=== PATIENT | female | born 1990 | race Caucasian/White ===

== ENCOUNTER 2017-06-18 14:29 | Emergency (ER) | payer SELFPAY ==
[2017-06-18] MEDS ORDERED: KETOROLAC TROMETHAMINE INJ/PF 30 MG/1 ML SDV IV ONE (14:48)
[2017-06-18] MEDS ORDERED: NORMAL SALINE 1000 ML 1,000 ML IV ONE (14:48)
[2017-06-18] MEDS ORDERED: LIDOCAINE 2% VISCOUS SOLN 20 ML UDCUP PO ONE (14:49)
--- NOTE | 2017-06-18 14:49 | ER Document Report ---
HPI - HPI Patient complains to provider of: sore throat Onset: Other - 2 days Onset/Duration: Persistent Quality of pain: Achy Pain Level: 5 Context: Patient presents complaining of sore throat for the past 2 days. Patient states she has not been drinking as much because of the pain. Patient denies any fever. Associated Symptoms: Sore throat. denies: Earache, Fever, Headache Exacerbated by: Denies Relieved by: Denies Similar symptoms previously: Yes Recently seen / treated by doctor: No - ROS ROS below otherwise negative: Yes Systems Reviewed and Negative: Yes All other systems reviewed and negative - CONSTITUTIONAL Constitutional: DENIES: Fever - EENT EENT: REPORTS: Sore Throat - NEURO Neurology: DENIES: Headache - RESPIRATORY Respiratory: DENIES: Coughing - GASTROINTESTINAL Gastrointestinal: DENIES: Nausea, Patient vomiting - DERM Skin Color: Normal, [place] Skin Problems: None Past Medical History - General Information source: Patient - Social History Smoking Status: Current Every Day Smoker Frequency of alcohol use: None Drug Abuse: None Occupation: Property management Family History: Reviewed & Not Pertinent Patient has suicidal ideation: No Patient has homicidal ideation: No Endocrine Medical History: Reports: Other - Al's Renal/ Medical History: Reports: Hx Ovarian Cysts - PCOS. Denies: Hx Peritoneal Dialysis Past Surgical History: Reports: Hx Gynecologic Surgery - LEEP procedures, Hx Thyroid Surgery, Hx Tonsillectomy Vertical Provider Document - CONSTITUTIONAL Agree With Documented VS: Yes Exam Limitations: No Limitations General Appearance: WD/WN, No Apparent Distress - INFECTION CONTROL TRAVEL OUTSIDE OF THE [place] IN LAST 30 DAYS: No - HEENT HEENT: Atraumatic, Normocephalic, Pharyngeal Tenderness, Pharyngeal Erythema. negative: Pharyngeal Exudate, Tympanic Membrane Red, Tympanic Membrane Bulging - NECK Neck: Lymphadenopathy-Left, Lymphadenopathy-Right - RESPIRATORY Respiratory: Breath Sounds Normal, No Respiratory Distress O2 Sat by Pulse Oximetry: 98 - CARDIOVASCULAR Cardiovascular: Regular Rhythm, No Murmur, Tachycardia - BACK Back: Normal Inspection - MUSCULOSKELETAL/EXTREMETIES Musculoskeletal/Extremeties: MAEW - NEURO Level of Consciousness: Awake, Alert, Appropriate Motor/Sensory: No Motor Deficit - DERM Integumentary: Warm, Dry, No Rash Course - Re-evaluation Re-evalutation: 06/18/17 16:07 Patient's tachycardia has resolved, heart rate in the 90s, patient complains of continued sore throat symptoms. Patient encouraged to increase oral fluids and stay well-hydrated. Patient advised that throat cultures pending. Discussed worsening signs or symptoms that patient should return immediately for. Patient verbalized understanding and agrees with plan of care. - Vital Signs Vital signs: Temp Pulse Resp BP Pulse Ox 99.4 F 138 H 14 127/84 H 98 06/18/17 14:36 06/18/17 14:36 06/18/17 14:36 06/18/17 14:36 06/18/17 14:36 - Laboratory Laboratory results interpreted by me: 06/18/17 16:08 Labs- Entire Visit 06/18/17 14:37 Group A Strep Rapid NEGATIVE Discharge - Discharge Clinical Impression: Sore throat (viral), Dehydration, mild Condition: Stable Disposition: HOME, SELF-CARE Instructions: Sore Throat ([facility]), Dehydration ([facility]), Intravenous (IV) Fluids ( [facility]) Additional Instructions: Return immediately for any new or worsening symptoms Followup with your primary care provider, call tomorrow to make a followup appointment Increase oral fluids, stay well-hydrated Throat culture is pending, we will call if you need any different treatment Prescriptions: Naproxen [Naprosyn 250 Nmg Tablet] 1 tab PO BID #14 tablet Forms: Return to Work Referrals: [facility] [Provider Group] - Follow up as needed
[2017-06-18 16:40] VITALS: BP 126/78
== END 2017-06-18 16:40 | disposition home or self-care (01) ==
LOC: ER 14:29
DX: J02.8 Acute pharyngitis due to other specified organisms (principal); B97.89 Other viral agents as the cause of diseases classified elsewhere; E86.0 Dehydration; R00.0 Tachycardia, unspecified; F17.200 Nicotine dependence, unspecified, uncomplicated
CPT/HCPCS: 99283; 96374; 87070; 87880; J1885; J7030

== ENCOUNTER 2017-06-20 21:24 | Emergency (ER) | payer SELFPAY ==
[2017-06-20] MEDS ORDERED: ACETAMINOPHEN SOLN 325 MG/10.15 ML UDCUP PO ONE (22:44)
[2017-06-21] MEDS ORDERED: DEXAMETHASONE 4 MG TABLET PO ONE (00:43)
--- NOTE | 2017-06-21 00:47 | ER Document Report ---
ED General - General Chief Complaint: Sore Throat Stated Complaint: SORE THROAT,FEVER Time Seen by Provider: 06/21/17 00:43 Notes: Patient is a 26-year-old female without past medical history who presents with 3 days of ongoing sore throat, odynophagia, fever, and generalized malaise. She was seen in the emergency department 2 days ago for the same presentation and had negative strep test at that time. She has been trying Tylenol and ibuprofen at home with minimal improvement of her symptoms. She has not seen a primary care doctor regarding today's concerns. Denies any headache, neck pain or altered mental status. No history of similar symptoms in the past TRAVEL OUTSIDE OF THE [place] IN LAST 30 DAYS: No - Related Data Allergies/Adverse Reactions: No Known Allergies Allergy (Unverified 06/18/17 14:49) Past Medical History - General Information source: Patient - Social History Smoking Status: Current Every Day Smoker Chew tobacco use (# tins/day): No Frequency of alcohol use: None Drug Abuse: None Lives with: Spouse/Significant other Family History: Reviewed & Not Pertinent Pulmonary Medical History: Reports: Hx Tuberculosis Renal/ Medical History: Reports: Hx Ovarian Cysts - PCOS. Denies: Hx Peritoneal Dialysis Past Surgical History: Reports: Hx Gynecologic Surgery - LEEP procedures, Hx Thyroid Surgery, Hx Tonsillectomy - Immunizations Hx Diphtheria, Pertussis, Tetanus Vaccination: No Review of Systems - Review of Systems Notes: Constitutional: Positive for fever. HENT: Positive for sore throat. Eyes: Negative for visual changes. Cardiovascular: Negative for chest pain. Respiratory: Negative for shortness of breath. Gastrointestinal: Negative for abdominal pain, vomiting or diarrhea. Genitourinary: Negative for dysuria. Musculoskeletal: Negative for back pain. Skin: Negative for rash. Neurological: Negative for headaches, weakness or numbness. 10 point ROS negative except as marked above and in HPI. Physical Exam - Vital signs Vitals: Temp Pulse Resp BP Pulse Ox 102.1 F H 136 H 20 132/81 H 97 06/20/17 22:37 06/20/17 22:37 06/20/17 22:37 06/20/17 22:37 06/20/17 22:37 Interpretation: Tachycardic Notes: PHYSICAL EXAMINATION: GENERAL: Well-appearing, well-nourished and in no acute distress. HEAD: Atraumatic, normocephalic. EYES: Pupils equal round and reactive to light, extraocular movements intact, sclera anicteric, conjunctiva are normal. ENT: nares patent, white exudates in the posterior pharynx, tonsils absent, moderately dry mucous membranes NECK: Normal range of motion, supple without lymphadenopathy LUNGS: Breath sounds clear to auscultation bilaterally and equal. No wheezes rales or rhonchi. HEART: Regular tachycardia without murmurs ABDOMEN: Soft, nontender, normoactive bowel sounds. No guarding, no rebound. No masses appreciated. EXTREMITIES: Normal range of motion, no pitting or edema. No cyanosis. NEUROLOGICAL: No focal neurological deficits. Moves all extremities spontaneously and on command. PSYCH: Normal mood, normal affect. SKIN: Warm, Dry, normal turgor, no rashes or lesions noted. Course - Re-evaluation Re-evalutation: 06/21/17 00:44 Presentation of several days of sore throat in an otherwise well-appearing patient. Rapid strep is negative. History and exam are not consistent with a retropharyngeal abscess or peritonsillar abscess. Airway is patent. No difficulty handling oral secretions. Vitals within normal limits. Patient has been treated with a dose of oral decadron. At this time will discharge with return precautions and follow-up recommendations. Verbal discharge instructions given a the bedside and opportunity for questions given. Medication warnings reviewed. Patient is in agreement with this plan and has verbalized understanding of return precautions and the need for primary care follow-up. - Vital Signs Vital signs: Temp Pulse Resp BP Pulse Ox 99.5 F 91 20 82/49 L 96 06/21/17 02:37 06/21/17 02:37 06/21/17 02:37 06/21/17 02:37 06/21/17 02:37 Discharge - Discharge Clinical Impression: Sore throat (viral), Dehydration, mild Condition: Good Disposition: HOME, SELF-CARE Additional Instructions: Your strep test is normal. Your symptoms are likely due to a virus and should resolve in the next 7-10 days. Take ibuprofen or Tylenol as needed. Return if you develop difficulty swallowing, breathing, pass out, or have any other symptoms that are worrisome to you. Forms: Return to Work
[2017-06-21] MEDS ORDERED: NORMAL SALINE 1000 ML 1,000 ML IV ONE (01:03)
[2017-06-21] MEDS ORDERED: KETOROLAC TROMETHAMINE INJ/PF 30 MG/1 ML SDV IV ONE (01:03)
[2017-06-21 03:31] VITALS: BP 106/48
== END 2017-06-21 03:44 | disposition home or self-care (01) ==
LOC: ER 21:24
DX: J02.8 Acute pharyngitis due to other specified organisms (principal); B97.89 Other viral agents as the cause of diseases classified elsewhere; E86.0 Dehydration; R50.9 Fever, unspecified; R13.10 Dysphagia, unspecified; R53.81 Other malaise; F17.200 Nicotine dependence, unspecified, uncomplicated; Z90.89 Acquired absence of other organs
CPT/HCPCS: 99283; 96361; 96374; 87070; 87880; J1885; J7030; J3490

== ENCOUNTER 2018-05-29 10:02 | Emergency (ER) | payer MEDICAID ==
--- NOTE | 2018-05-29 10:20 | ER Document Report ---
ED Medical Screen (RME) - General Chief Complaint: OB Problem (<20wks) Stated Complaint: ABDOMINAL PAIN Time Seen by Provider: 05/29/18 10:10 Notes: A0 ~13 weeks , LMP ~34 presents for chief complaint of intermittent abdominal sharp cramping that is diffuse that has been going on since yesterday. She states she has been constipated for the last several days , but cannot tell me exact time, ~one week. She has been having intermittent vomiting since the beginning of her . She states that she has had one formal ultrasound showing valid intrauterine at outside clinic. No known medical problems or drug allergies. She denies dysuria, vaginal discharge, vaginal bleeding, or loss of fluids. I have greeted and performed a rapid initial assessment of this patient. A comprehensive ED assessment and evaluation of the patient, analysis of test results and completion of the medical decision making process will be conducted by additional ED providers. PHYSICAL EXAMINATION: GENERAL: Well-appearing, well-nourished and in no acute distress. Mildly dry mucus membranes HEAD: Atraumatic, normocephalic. EYES: Pupils equal round extraocular movements intact, conjunctiva are normal. CV: Tachycardia, murmors LUNGS: No respiratory distress Musculoskeletal: Normal range of motion NEUROLOGICAL: Normal speech, normal gait. PSYCH: Normal mood, normal affect. TRAVEL OUTSIDE OF THE [place] IN LAST 30 DAYS: No - Related Data Allergies/Adverse Reactions: No Known Allergies Allergy (Verified 05/29/18 10:15) Past Medical History - Social History Chew tobacco use (# tins/day): No Frequency of alcohol use: None Drug Abuse: None Pulmonary Medical History: Reports: Hx Tuberculosis Renal/ Medical History: Reports: Hx Ovarian Cysts - PCOS. Denies: Hx Peritoneal Dialysis Past Surgical History: Reports: Hx Gynecologic Surgery - LEEP procedures, Hx Thyroid Surgery, Hx Tonsillectomy - Immunizations Hx Diphtheria, Pertussis, Tetanus Vaccination: No Physical Exam - Vital signs Vitals: Temp Pulse Resp BP Pulse Ox 97.9 F 127 H 18 139/79 H 97 05/29/18 10:07 05/29/18 10:07 05/29/18 10:07 05/29/18 10:07 05/29/18 10:07 Course - Vital Signs Vital signs: Temp Pulse Resp BP Pulse Ox 97.9 F 127 H 18 139/79 H 97 05/29/18 10:07 05/29/18 10:07 05/29/18 10:07 05/29/18 10:07 05/29/18 10:07
[2018-05-29] MEDS ORDERED: RINGERS SOLUTION,LACTATED 1,000 ML IV PRN (10:22)
[2018-05-29] MEDS ORDERED: METOCLOPRAMIDE HCL INJ/PF 10 MG/2 ML SDV IV ONE (10:22)
--- NOTE | 2018-05-29 10:32 | ER Document Report ---
ED GI/ - General Chief Complaint: OB Problem (<20wks) Stated Complaint: ABDOMINAL PAIN Time Seen by Provider: 05/29/18 10:10 Mode of Arrival: Ambulatory Information source: Patient Notes: The patient is currently 13 weeks . Patient reports intermittent cramping that started yesterday with nausea and vomiting. Patient states she is vomited twice today. Patient denies any diarrhea, urine symptoms, vaginal bleeding or discharge. Patient denies any concerns about any sexually transmitted infection. Patient is followed by [facility]. TRAVEL OUTSIDE OF THE [place] IN LAST 30 DAYS: No - HPI Patient complains to provider of: Pelvic pain, , Vomiting Onset: Yesterday Timing/Duration: Gradual Quality of pain: Cramping Severity in ED: Moderate Pain Level: Denies Location: Pelvis Vaginal bleeding (Compared to normal period): None Menstrual period history: Associated symptoms: Nausea, Vomiting. 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 Denies: Hx Peritoneal Dialysis Past Surgical History: Reports: Hx Gynecologic Surgery - LEEP procedures, Hx Thyroid Surgery, Hx Tonsillectomy - Immunizations Hx Diphtheria, Pertussis, Tetanus Vaccination: No Review of Systems - Review of Systems Constitutional: No symptoms reported. denies: Fever, Recent illness EENT: No symptoms reported Cardiovascular: No symptoms reported. denies: Chest pain Respiratory: No symptoms reported. denies: Cough, Short of breath Gastrointestinal: Abdominal pain, Nausea, Vomiting. denies: Diarrhea Genitourinary: No symptoms reported. denies: Dysuria, Flank pain Female Genitourinary: No symptoms reported, . denies: Vaginal discharge , Vaginal bleeding Musculoskeletal: No symptoms reported. denies: Back pain Skin: No symptoms reported Hematologic/Lymphatic: No symptoms reported Neurological/Psychological: No symptoms reported Physical Exam - Vital signs Vitals: Temp Pulse Resp BP Pulse Ox 97.9 F 127 H 18 139/79 H 97 05/29/18 10:07 05/29/18 10:07 05/29/18 10:07 05/29/18 10:07 05/29/18 10:07 - General General appearance: Appears well, Alert In distress: None - HEENT Head: Normocephalic, Atraumatic Eyes: Normal Conjunctiva: Normal Nasal: Normal Mouth/Lips: Normal Pharynx: Normal Neck: Normal, Supple. No: Lymphadenopathy - Respiratory Respiratory status: No respiratory distress Chest status: Nontender Breath sounds: Normal. No: Rales, Rhonchi, Stridor, Wheezing Chest palpation: Normal - Cardiovascular Rhythm: Tachycardia Heart sounds: S1 appreciated, S2 appreciated Murmur: No - Abdominal Inspection: Gravid female Distension: No distension Bowel sounds: Normal Tenderness: Nontender Organomegaly: No organomegaly - Back Back: Normal, Nontender. No: CVA tenderness - Extremities General upper extremity: Normal inspection, Normal strength General lower extremity: Normal inspection, Normal strength - Neurological Neuro grossly intact: Yes Cognition: Normal David Coma Scale Eye Opening: Spontaneous David Coma Scale Verbal: Oriented David Coma Scale Motor: Obeys Commands [place] Coma Scale Total: 15 - Psychological Associated symptoms: Normal affect, Normal mood - Skin Skin Temperature: Warm Skin Moisture: Dry Skin Color: Normal Course - Re-evaluation Re-evalutation: 05/29/18 12:42 Patient denies any nausea or vomiting at this time. Patient nontoxic in appearance. Patient does report cramping resolved after having a bowel movement. Patient feels as though constipation is playing a role in her pain symptoms today. Abdomen soft, no guarding. Patient presents with abdominal pain without signs of peritonitis or other life-threatening or serious etiology. Patient appears stable for discharge and has been instructed to return immediately if the symptoms worsen in any way, or in 8-12 hours if not improved for reevaluation. The patient has been instructed to return if the symptoms worsen or change in any way. 05/29/18 12:49 - Vital Signs Vital signs: Temp Pulse Resp BP Pulse Ox 98.4 F 90 16 106/58 L 95 05/29/18 14:10 05/29/18 14:10 05/29/18 12:18 05/29/18 14:10 05/29/18 14:10 - Laboratory Result Diagrams: 05/29/18 10:32 05/29/18 10:32 Laboratory results interpreted by me: 05/29/18 05/29/18 05/29/18 10:32 10:32 10:33 WBC 11.6 H Hct 35.9 L Seg Neutrophils % 81.0 H Absolute Neutrophils 9.4 H Carbon Dioxide 21 L BUN 6 L Creatinine 0.40 L Urine Urobilinogen 2.0 H Labs- Entire Visit 05/29/18 05/29/18 05/29/18 10:32 10:32 10:33 WBC 11.6 H RBC 4.14 Hgb 12.4 Hct 35.9 L MCV 87 MCH 29.8 MCHC 34.4 RDW 13.9 Plt Count 331 Seg Neutrophils % 81.0 H Lymphocytes % 14.4 Monocytes % 3.9 Eosinophils % 0.4 Basophils % 0.3 Absolute Neutrophils 9.4 H Absolute Lymphocytes 1.7 Absolute Monocytes 0.5 Absolute Eosinophils 0.1 Absolute Basophils 0.0 Sodium 141.2 Potassium 4.3 Chloride 106 Carbon Dioxide 21 L Anion Gap 14 BUN 6 L Creatinine 0.40 L Est GFR ( Amer) > 60 Est GFR (Non-Af Amer) > 60 Glucose 83 Calcium 10.0 Total Bilirubin 0.3 Direct Bilirubin 0.3 Neonat Total Bilirubin Not Reportable Neonat Direct Bilirubin Not Reportable Neonat Indirect Bili Not Reportable AST 15 ALT 16 Alkaline Phosphatase 73 Total Protein 6.8 Albumin 3.9 Urine Color YELLOW Urine Appearance SLIGHTLY-CLOUDY Urine pH 7.0 Ur Specific [place] 1.019 Urine Protein NEGATIVE Urine Glucose (UA) NEGATIVE Urine Ketones NEGATIVE Urine Blood NEGATIVE Urine Nitrite NEGATIVE Urine Bilirubin NEGATIVE Urine Urobilinogen 2.0 H Ur Leukocyte Esterase NEGATIVE Urine WBC (Auto) 2 Urine RBC (Auto) 1 Urine Bacteria (Auto) TRACE Squamous Epi Cells Auto 3 Urine Mucus (Auto) OCC Urine Ascorbic Acid NEGATIVE - Diagnostic Test Radiology reviewed: Reports reviewed Discharge - Discharge Clinical Impression: Abdominal cramping affecting Nausea and vomiting Qualifiers: Vomiting type: unspecified Vomiting Intractability: non-intractable Qualified Code(s): R11.2 - Nausea with vomiting, unspecified Constipation Qualifiers: Constipation type: unspecified constipation type Qualified Code(s): K59.00 - Constipation, unspecified Condition: Stable Disposition: HOME, SELF-CARE Instructions: Antinausea Medication ([facility]), Intravenous (IV) Fluids ([facility]), Viral Syndrome ([facility]) Additional Instructions: Return immediately for any new or worsening symptoms Follow-up with your title searcher on Thursday, call for an appointment time. Prescriptions: Promethazine HCl [Phenergan 25 mg Supp.rect] 1 supp WY Q6H PRN #10 supp.rect PRN Reason: Forms: Smoking Cessation Education Referrals: SHANTAL RICHARDSON MD [Primary Care Provider] - 05/31/18
[2018-05-29 11:10] LABS: ABSOLUTE EOSINOPHILS # (AUTO) 0.1 10^3/uL (0.0-0.6); ABSOLUTE LYMPHOCYTES (AUTO) 1.7 10^3/uL (0.5-4.7); ABSOLUTE MONOCYTES (AUTO) 0.5 10^3/uL (0.1-1.4); ABSOLUTE NEUT (AUTO) 9.4 10^3/uL (1.7-8.2); BASOPHILS % (AUTO) 0.3 % (0-2); EOSINOPHILS % (AUTO) 0.4 % (0-6); HEMATOCRIT 35.9 % (36.0-47.0); HEMOGLOBIN 12.4 g/dL (12.0-15.5); LYMPHOCYTES % (AUTO) 14.4 % (13-45); MEAN CORPUSCULAR HEMOGLOBIN 29.8 pg (27.0-33.4); MEAN CORPUSCULAR HGB CONC 34.4 g/dL (32.0-36.0); MEAN CORPUSCULAR VOLUME 87 fl (80-97); MONOCYTES % (AUTO) 3.9 % (3-13); PLATELET COUNT 331 10^3/uL (150-450); RED BLOOD COUNT 4.14 10^6/uL (3.72-5.28); RED CELL DISTRIBUTION WIDTH 13.9 % (11.5-14.0); TOTAL CELLS COUNTED % (AUTO) 100 %; WHITE BLOOD COUNT 11.6 10^3/uL (4.0-10.5)
--- NOTE | 2018-05-29 11:24 | RADIOLOGY REPORT (SQ) ---
EXAM DESCRIPTION: U/S [id number] TRNABD 1GES W/ODOP COMPLETED DATE/TIME: 05/29/2018 11:10 am REASON FOR STUDY: pelvic pain COMPARISON: None. TECHNIQUE: Transabdominal static and realtime grayscale images acquired of the pelvis. Additional se lected spectral and color Doppler images recorded. All images stored on PACs. bHCG: Not available. CLINICAL DATES: 12/08/2018 LIMITATIONS: None. FINDINGS: FETUS: Living intrauterine . ULTRASOUND EGA: 12 weeks 6 days ULTRASOUND GARY: 12/05/2018 CRL: 6.6 cm FHR: 167 beats per minute. SUBCHORIONIC BLEED: No SIZE OF BLEED: Not applicable. UTERUS: No masses. No anomalies. CERVICAL LENGTH: 3.9 cm Closed. RIGHT ADNEXA: Ovary not identified. No adnexal free fluid. No adnexal masses. LEFT ADNEXA: Ovary not identified. No adnexal free fluid. No adnexal masses. FREE FLUID: None. OTHER: No other significant finding. IMPRESSION: LIVING INTRAUTERINE . EGA 12 weeks 6 days Trimester of : First - 0 to 13 weeks. TECHNICAL DOCUMENTATION: JOB ID: [id number] [employer]- All Rights Reserved rev-04/16 Reading location - IP/workstation name: [email or web address]
[2018-05-29 11:43] LABS: ALANINE AMINOTRANSFERASE 16 U/L (9-52); ALBUMIN 3.9 g/dL (3.5-5.0); ALKALINE PHOSPHATASE 73 U/L (38-126); ANION GAP 14 (5-19); ASPARTATE AMINO TRANSFERASE 15 U/L (14-36); BILIRUBIN,DIRECT 0.3 mg/dL (0.0-0.4); BILIRUBIN,TOTAL 0.3 mg/dL (0.2-1.3); BLOOD UREA NITROGEN 6 mg/dL (7-20); CARBON DIOXIDE 21 mmol/L (22-30); CHLORIDE 106 mmol/L (98-107); GLUCOSE 83 mg/dL (75-110); POTASSIUM 4.3 mmol/L (3.6-5.0); SODIUM 141.2 mmol/L (137-145); TOTAL PROTEIN 6.8 g/dL (6.3-8.2)
[2018-05-29] MEDS ORDERED: ACETAMINOPHEN 325 MG TABLET PO ONE (12:03)
[2018-05-29 12:23] LABS: APPEARANCE,URINE SLIGHTLY-CLOUDY; BILIRUBIN,URINE NEGATIVE (NEGATIVE); COLOR,URINE YELLOW; GLUCOSE, URINE NEGATIVE (NEGATIVE); KETONES,URINE NEGATIVE (NEGATIVE); LEUKOCYTE ESTERASE,URINE NEGATIVE (NEGATIVE); NITRITE,URINE NEGATIVE (NEGATIVE); PROTEIN,URINE NEGATIVE (NEGATIVE); URINE SPECIFIC GRAVITY 1.019
[2018-05-29 14:18] VITALS: BP 106/58
== END 2018-05-29 14:18 | disposition home or self-care (01) ==
LOC: ER 10:02
DX: O21.9 Vomiting of pregnancy, unspecified (principal); O99.611 Diseases of the digestive system complicating pregnancy, first trimester; K59.00 Constipation, unspecified; O26.891 Other specified pregnancy related conditions, first trimester; R10.2 Pelvic and perineal pain; O99.331 Smoking (tobacco) complicating pregnancy, first trimester; Z3A.13 13 weeks gestation of pregnancy
CPT/HCPCS: 99284; 96361; 96374; 36415; 85025; 80053; 81001; 76801; J3490; J2765; J7120

== ENCOUNTER → 2018-10-07 | Outpatient (CLI) | payer MEDICAID | LOC: OD 17:01 | PROVIDERS: ATTEND Student in an Organized Health Care Education/Training Program | DX: Z13.1 Encounter for screening for diabetes mellitus (principal) | CPT/HCPCS: 36415; 83036 ==

== ENCOUNTER → 2018-11-10 | Outpatient (CLI) | payer MEDICAID | LOC: LC 10:18 | PROVIDERS: ATTEND Student in an Organized Health Care Education/Training Program | PROC: 4A1HXCZ Monitoring of Products of Conception, Cardiac Rate, External Approach (ICD-10-PCS; principal; 2018-11-10) | DX: Z34.93 Encounter for supervision of normal pregnancy, unspecified, third trimester (principal) | CPT/HCPCS: 59025 ==

== ENCOUNTER 2018-12-01 15:42 | Outpatient (CLI) | payer MEDICAID ==
--- NOTE | 2018-12-01 16:28 | Non Stress Test Report ---
Non Stress Test Datetime Report Generated by CPN: 12/01/2018 16:27 INDICATION Indication for Study: Ordered by Provider Indication for Study (NST) Other: repeat VITAL SIGNS RESP - NST: 18 MONITORING Monitor Explained: Monitor Explained; Test Explained; Patient Verbalized Understanding Time on Monitor: 12/01/2018 15:58 Time off Monitor: 12/01/2018 16:21 NST Duration: 23 NST INTERVENTIONS NST Interventions: PO Hydration; Reposition Patient Physician Notified NST: J Ball CNM BABY A: [id number] BABY A Movement : Present Contraction Frequency : irregular FHR Baseline : 130 Accelerations : 15X15 Decelerations : None Variability : Moderate 6-25bpm NST Review: Meets Criteria for Reactive NST NST Review and Verified By : cheryl camp rnc NST Results: Reactive NST REPORT Report Trigger: Send Report
[2018-12-01 16:35] LABS: ALANINE AMINOTRANSFERASE 15 U/L (9-52); ALBUMIN 3.3 g/dL (3.5-5.0); ALKALINE PHOSPHATASE 336 U/L (38-126); ANION GAP 8 (5-19); ASPARTATE AMINO TRANSFERASE 13 U/L (14-36); BILIRUBIN,DIRECT 0.2 mg/dL (0.0-0.4); BILIRUBIN,TOTAL 0.3 mg/dL (0.2-1.3); BLOOD UREA NITROGEN 8 mg/dL (7-20); CALCIUM 9.5 mg/dL (8.4-10.2); CARBON DIOXIDE 20 mmol/L (22-30); CHLORIDE 108 mmol/L (98-107); GLUCOSE 142 mg/dL (75-110); POTASSIUM 3.9 mmol/L (3.6-5.0); SODIUM 135.8 mmol/L (137-145); TOTAL PROTEIN 6.2 g/dL (6.3-8.2)
== END 2018-12-01 16:25 | disposition home or self-care (01) ==
LOC: LC 15:42
PROVIDERS: ATTEND Obstetrics & Gynecology Gynecology
PROC: 4A1HXCZ Monitoring of Products of Conception, Cardiac Rate, External Approach (ICD-10-PCS; principal; 2018-12-01)
DX: Z34.93 Encounter for supervision of normal pregnancy, unspecified, third trimester (principal)
CPT/HCPCS: 36415; 59025; 80053

== ENCOUNTER 2018-12-05 20:02 | Inpatient (IN) | payer MEDICAID ==
[2018-12-05] MEDS ORDERED: RINGERS SOLUTION,LACTATED 1,000 ML IV PRN (20:18)
[2018-12-05] MEDS ORDERED: RINGERS SOLUTION,LACTATED 300 ML IV ONE (20:18)
[2018-12-05] MEDS ORDERED: DINOPROSTONE 10 MG VAGINAL INSERT.SR PV PRN (20:18)
[2018-12-05 20:46] LABS: ABSOLUTE BASOPHILS # (AUTO) 0.1 10^3/uL (0.0-0.2); ABSOLUTE EOSINOPHILS # (AUTO) 0.1 10^3/uL (0.0-0.6); ABSOLUTE LYMPHOCYTES (AUTO) 2.3 10^3/uL (0.5-4.7); ABSOLUTE MONOCYTES (AUTO) 0.6 10^3/uL (0.1-1.4); ABSOLUTE NEUT (AUTO) 8.8 10^3/uL (1.7-8.2); BASOPHILS % (AUTO) 0.7 % (0-2); EOSINOPHILS % (AUTO) 0.9 % (0-6); HEMATOCRIT 31.3 % (36.0-47.0); HEMOGLOBIN 10.6 g/dL (12.0-15.5); LYMPHOCYTES % (AUTO) 19.6 % (13-45); MEAN CORPUSCULAR HEMOGLOBIN 29.2 pg (27.0-33.4); MEAN CORPUSCULAR HGB CONC 33.9 g/dL (32.0-36.0); MEAN CORPUSCULAR VOLUME 86 fl (80-97); MONOCYTES % (AUTO) 4.8 % (3-13); PLATELET COUNT 494 10^3/uL (150-450); RED BLOOD COUNT 3.64 10^6/uL (3.72-5.28); RED CELL DISTRIBUTION WIDTH 14.6 % (11.5-14.0); TOTAL CELLS COUNTED % (AUTO) 100 %; WHITE BLOOD COUNT 11.9 10^3/uL (4.0-10.5)
[2018-12-05 20:50] LABS: APPEARANCE,URINE SLIGHTLY-CLOUDY; BILIRUBIN,URINE NEGATIVE (NEGATIVE); COLOR,URINE YELLOW; GLUCOSE, URINE NEGATIVE (NEGATIVE); KETONES,URINE NEGATIVE (NEGATIVE); LEUKOCYTE ESTERASE,URINE TRACE (NEGATIVE); NITRITE,URINE NEGATIVE (NEGATIVE); PROTEIN,URINE NEGATIVE (NEGATIVE); URINE SPECIFIC GRAVITY 1.015; UROBILINOGEN,URINE NEGATIVE mg/dL (<2.0)
[2018-12-05] MEDS ORDERED: DINOPROSTONE 10 MG VAGINAL INSERT.SR ONE (20:56)
[2018-12-05 21:06] LABS: URINE AMPHETAMINES SCREEN NEGATIVE; URINE BARBITURATES SCREEN NEGATIVE; URINE BENZODIAZEPINES SCREEN NEGATIVE; URINE COCAINE SCREEN NEGATIVE; URINE MARIJUANA (THC) SCREEN NEGATIVE; URINE METHADONE SCREEN NEGATIVE; URINE PHENCYCLIDINE SCREEN NEGATIVE
[2018-12-06] MEDS ORDERED: ZOLPIDEM TARTRATE 5 MG TABLET PO ONE ×2 (01:39→01:40)
[2018-12-06] MEDS ORDERED: ZOLPIDEM TARTRATE 5 MG TABLET ONE (01:40)
--- NOTE | 2018-12-06 07:29 | Admission Physical ---
Datetime Report Generated by CPN: 12/06/2018 07:29 CURRENT ADMISSION Chief Complaint: Scheduled Induction of Labor Indication for Induction: Other Indication for Induction- Other: A1GDM Admit Impression : Term, Intrauterine Admit Plan: Admit to Unit; Initiate Labor Induction Protocol ALLERGIES Medication Allergies: No Medication Allergies: No Known Allergies (12/05/2018) Latex: No Latex Allergies OBSTETRICAL HISTORY EDC: 12/07/2018 00:00 : 2 Para: 1 Gestational Diabetes: Yes Rh Sensitization: No Incompetent Cervix: No ALAN: No Infertility: No ART Treatment: No Uterine Anomaly: No IUGR: No Hx Previous C/S: No Macrosomia: No Hx Loss/Stillborn: No PIH: No Hx : No Placenta Previa/Abruption: No Depression/PP Depression: Yes PTL/PROM: No Post Hemorrhage: No Current Procedures: Ultrasound; NST Obstetrical History Comments: G1 42 weeks 6lbs 11 oz female SEE RECORDS Alcohol: No Marijuana : No Cocaine: No Other Illicit Drugs: No Cigarettes: Never Smoker. 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 Surgery: No Heart Disease: No Hosp/Surgery: Yes Autoimmune Disorder: No Anesthetic Complications: No Kidney Disease: No Abnormal Pap Smear: No Neuro/Epilepsy: No Psychiatric Disorders: No Other Medical Diseases: No Hepatitis/Liver Disease: No Significant Family History: No Varicosities/Phlebitis: No Trauma/Violence : No Thyroid Dysfunction: Yes Medical History Comments: PCOS, Leep X2, hashimotos tonsilectomy INFECTIOUS HISTORY Gonorrhea: No Genital Herpes: No Chlamydia: No Tuberculosis: No Syphilis: No Hepatitis: No HIV/AIDS Exposure: No Rash or Viral Illness: No HPV: No PHYSICAL EXAM General: Normal HEENT: Normal Neurologic: Normal Thyroid: Normal Heart: Normal Lungs: Normal Breast: Deferred Back: Normal Abdomen: Normal Genitourinary Exam: Normal Extremities: Normal DTRs: Normal Pelvic Type: Adequate Vital Signs: Reviewed VAGINAL EXAM Dilatation: 1 Effacement: 25 Station: -3 MEMBRANES Pooling: Negative Membranes: Intact FETUS A EGA: 39.6 Monitoring: External US FHR- Baseline: 120 Variability: Moderate 6-25bpm Decelerations: None FHR Category: Category I Admit Comment: Admit for cervadil PLANS FOR LABOR AND DELIVERY Pain Management: Epidural Feeding Preference: Formula Benefit of Breast Feed Discussed: Yes Circumcision: N/A INFORMED CONSENT Signature: with User ID: [email or web address]
[2018-12-06] MEDS ORDERED: PENICILLIN G POTASSIUM 5,000,000 UNIT in DEXTROSE 5%-WATER 100 ML IV ONE (08:00)
[2018-12-06] MEDS ORDERED: OXYTOCIN/NORMAL SALINE 20 UNIT/1,000 ML RTUINJ IV PRN ×2 (10:20→18:47)
[2018-12-06] MEDS ORDERED: PENICILLIN G-K 5 MILLION UNIT VIAL ONE ×2 (10:22→14:00)
[2018-12-06] MEDS ORDERED: OXYTOCIN/NORMAL SALINE 20 UNIT/1,000 ML RTUINJ ONE (10:22)
--- NOTE | 2018-12-06 10:29 | L&D Progress Notes ---
PROGRESS NOTES Datetime Report Generated by CPN: 12/06/2018 10:29 PROGRESS NOTE Impression Other: IUP @ 80d2b-TDS for GDM Procedures: Sterile Vag Exam Plan: Continue Present Management Informed Consent Obtained: Vaginal Delivery; Induction of Labor; Risks, Benefits and Alternatives Discussed Vital Signs : Reviewed; Within Normal Limits Comment: S: comfortable, reports starting to feel uncomfortable contractions, desires epidural at some point for pain control, no concerns O: VSS, cervix as stated, cervidil removed earlier prior to shower and breakfast A: IUP @ 85d0u-GUA, stable, progressing well P: continue IOL, start PCN at this time for GBS prophylaxis. Will move on to pitocin at this time, epidural prn. Will re-assess in 2hrs, earlier prn. VAGINAL EXAM Dilatation: 4 Dilatation: 1 Effacement: 70 Effacement: 25 Station: -1 Station: -3 Contractions: 2-4 LAST VAGINAL EXAM-NURSING Dilitation: 4.0 Dilitation: 1.0 Effacement: 70 Effacement: 25 Station: -1 Station: -3 Contractions: irritibility MEMBRANES Pooling: Negative Membranes: Intact FETUS A Accelerations: 15X15 FHR Category: Category I : 39.0 SIGNATURE SIGNATURE: [id number];[id number];[id number] SIGNATURE: [id number];[id number] SIGNATURE: [id number] Assignment: Kadie Fountain MD Signature: with User ID: [email or web address] : with User ID: [email or web address]
[2018-12-06] MEDS ORDERED: PENICILLIN G POTASSIUM 2,500,000 UNIT in DEXTROSE 5%-WATER 50 ML IV SCH (12:00)
[2018-12-06] MEDS ORDERED: MISOPROSTOL 0.2 MG TABLET ONE (12:10)
[2018-12-06] MEDS ORDERED: EPHEDRINE SULFATE INJ 50 MG/1 ML AMPULE ONE (12:10)
[2018-12-06] MEDS ORDERED: LIDOCAINE 1% INJ-PF (10 MG/ML) 30 ML SDV ONE (12:11)
[2018-12-06] MEDS ORDERED: FENTANYL/BUPIVACAINE/NS/PF 300 MCG/150 ML RTUINJ EPI ONE (12:11)
[2018-12-06] MEDS ORDERED: BUPIVACAINE HCL 0.25 % INJ/PF (2.5 MG/1 ML) 30 ML VIAL ONE (12:11)
[2018-12-06] MEDS: PENICILLIN G-K 5 MILLION UNIT VIAL IV SCH ×3 (14:16→22:48)
--- NOTE | 2018-12-06 16:47 | L&D Progress Notes ---
PROGRESS NOTES Datetime Report Generated by CPN: 12/06/2018 16:47 PROGRESS NOTE Impression Other: IUP @ [id number]-IUD for GDM Procedures: Artificial ROM; Sterile Vag Exam Plan: Continue Present Management Informed Consent Obtained: Vaginal Delivery; Induction of Labor; Risks, Benefits and Alternatives Discussed Vital Signs : Reviewed; Within Normal Limits Comment: S: comfortable with epidural, reports occasional vaginal pressure, no other concerns O: VSS, pit @ 6mu/min, cervix as stated with anterior lip A: IUP @ 39w6d- IOl for GDM A1-stable, progressing AROM- forebag palpated and ruptured-light meconium present, baby did not tolerate laying on that side rotated to other side and baby recovered P: continue present management, reassess as clinicially indicated or earlier prn VAGINAL EXAM Dilatation: 9 Effacement: 100 Station: 0 Contractions: 2-3 Dilitation: 9.0 MEMBRANES Amniotic Fluid Color: Meconium, Light FETUS A Monitoring: External US Variability: Moderate 6-25bpm Decelerations: Early; Late; Variable; Prolonged FHR Category: Category II FETUS C SIGNATURE: [id number];[id number];[id number] Assignment: Kadie Fountain MD Signature: with User ID: [email or web address] : with User ID: [email or web address]
[2018-12-06] MEDS ORDERED: DIPHENHYDRAMINE HCL 50 MG/ML VIAL IV ONE (17:28)
[2018-12-06] MEDS ORDERED: DIPHENHYDRAMINE HCL 50 MG/ML VIAL ONE (17:37)
[2018-12-06] MEDS ORDERED: MEASLES,MUMPS&RUBELLA VACC/PF 0.5 ML VIAL SUBCUT PRN (18:47)
[2018-12-06] MEDS ORDERED: NA PHOS,M-B/NA PHOS,DI-BA (ADULT) 133 ML ENEMA PR PRN (18:47)
[2018-12-06] MEDS ORDERED: MAGNESIUM HYDROXIDE SUSP 30 ML UDCUP PO PRN (18:47)
[2018-12-06] MEDS ORDERED: DIPHENHYDRAMINE HCL 25 MG CAPSULE PO PRN (18:47)
[2018-12-06] MEDS ORDERED: PROMETHAZINE HCL 25 MG TABLET PO PRN (18:47)
[2018-12-06] MEDS ORDERED: PROMETHAZINE HCL INJ 25 MG/1 ML VIAL IV PRN (18:47)
[2018-12-06] MEDS ORDERED: DIBUCAINE 1% OINTMENT 28 GM TP PRN (18:47)
[2018-12-06] MEDS ORDERED: PROMETHAZINE HCL 25 MG SUPP.RECT PR PRN (18:47)
[2018-12-06] MEDS ORDERED: ACETAMINOPHEN 325 MG TABLET PO PRN (18:47)
[2018-12-06] MEDS ORDERED: GLYCERIN/WITCH HAZEL LEAF 1 EACH MED..PAD TP PRN (18:47)
[2018-12-06] MEDS ORDERED: BENZOCAINE/MENTHOL AEROSOL SPRAY 56 ML TOP PRN (18:47)
[2018-12-06] MEDS ORDERED: DIPH/PERTUSS(ACELL)/TETANUS VAC/PF 0.5 ML SYR (>=10YO) IM PRN (18:47)
[2018-12-06] MEDS ORDERED: ACETAMINOPHEN WITH CODEINE #3 TABLET PO PRN ×2 (18:47)
[2018-12-06] MEDS ORDERED: PSEUDOEPHEDRINE HCL 30 MG TABLET PO PRN (18:47)
--- NOTE | 2018-12-06 18:51 | Warning Signs in Babies ---
VOD Warning Signs Datetime Report Generated by [facility]: 12/06/2018 18:50 VOD#608 -Warning Signs in Babies: Needs to be viewed. (12/01/2018 16:27:Kim Packer RN)
[2018-12-06] MEDS ORDERED: IBUPROFEN 800 MG TABLET ONE (19:34)
--- NOTE | 2018-12-06 20:32 | Delivery Summary ---
Del Sum A-C Datetime Report Generated by CPN: 12/06/2018 20:32 DELIVERY PERSONNEL DELIVERY PERSONNEL: [id number] Delivery Doctor:: Luz Barrera CNM Labor and Delivery Nurse:: Kim Caballero RN Nursery Nurse:: Eli Storey RN Buckle Sorter/GAMBLING BOX PERSON: Sangita Watson, CHAIR CANER MATERNAL INFORMATION Delivery Anesthesia: Epidural Medications After Delivery: Pitocin Drip 20 Units/1000ml NSS Maternal Complications: Other Provider Comments: pt progresed to c/c/3 with urge to push, began pushing and quickly delivered a viable baby girl with vigorous respiratory effort and cry with tactile stimulation. Baby placed on maternal abdomen, cord allowed to stop pulsating then clamped x2 and cut by FOB. Amniotic sac and cord followed spontaneously and placenta had to be delivered manually but intact, vaginal sweep performed and clots out. Central insertion but velamentous insertion noted (3vc noted). Vaginal and perineal inspection revealed no laceration, fundus firm @ u-1, minimal bleeding. Mother and baby stable, skin to skin and bonding at this time. Nursery present at delivery LABOR SUMMARY EDC: 12/07/2018 00:00 No. Babies in Womb: 1 Attempted: No Labor Anesthesia: Epidural LABOR INFORMATION Reason for Induction: Maternal Diabetes Onset of Labor: 12/06/2018 10:09 Complete Dilatation: 12/06/2018 18:13 Cervical Ripening Agents: Cervidil Oxytocin: Induction Group B Beta Strep: positive Antibiotics # of Doses: 2 Antibiotics Time of Last Dose: 1414 Name of Antibiotic Given: Penicillin Steroids Given: None Reason Steroids Not Administered: Not Applicable MEMBRANES Membranes Rupture Method: Artificial Rupture of Membranes: 12/06/2018 16:07 Length of Rupture (hr): 2.30 Amniotic Fluid Color: Light Meconium Amniotic Fluid Amount: Small Amniotic Fluid Odor: Normal STAGES OF LABOR Stage 1 hr: 8 Stage 1 min: 4 Stage 2 hr: 0 Stage 2 min: 12 Stage 3 hr: 0 Stage 3 min: 8 Total Time in Labor hr: 8 Total Time in Labor min: 24 VAGINAL DELIVERY Episiotomy: None Laceration #1: None Laceration Extension #1: N/A Laceration Repair: Not Applicable Sponge Count Correct: N/A; Vaginal Sweep Performed Sharps Count Correct: N/A CSECTION DELIVERY Primary Indication: N/A CSection Incidence: N/A Labor: N/A Elective: N/A CSection Incision: N/A BABY A INFORMATION Infant Delivery Date/Time: 12/06/2018 18:25 Method of Delivery: Vaginal Born in Route : No : N/A Forceps: N/A Vacuum Extraction: N/A Shoulder Dystocia : No PRESENTATION/POSITION BABY A Presentation: Cephalic Cephalic Presentation: Vertex Breech Presentation: N/A PLACENTA INFORMATION BABY A Placenta Delivery Time : 12/06/2018 18:33 Placenta Method of Delivery: Manual Removal Placenta Status: Delivered SCORES BABY A Heart Rate 1 min: >100 bpm Resp Effort 1 min: Slow, Irregular Reflex Irritability 1 min: Cough or Sneeze or Pulls Away Muscle Tone 1 min: Some Flexion of Extremities Color 1 min: Blue/Pale Resuscitation Effort 1 min: Tactile Stimulation SCORE 1 MIN: 6 Heart Rate 5 min: >100 bpm Resp Effort 5 min: Good Cry Reflex Irritability 5 min: Cough or Sneeze or Pulls Away Muscle Tone 5 min: Active Motion Color 5 min: Body [place], Extremities Blue Resuscitation Effort 5 min: N/A SCORE 5 MIN: 9 INFANT INFORMATION BABY A Gestational Age at Delivery: 39.6 Gestational Status: Full Term- 39- 40.6 Weeks Infant Outcome : Liveborn Condition : Stable Infant Sex: Female IDENTIFICATION BABY A Infant Verification Date/Time: 12/06/2018 19:00 ID Band Number: [id number] Mother's Name Verified: Yes Infant RN Verifying : CPhil Ericck, RN/ CPhil Caballero, RN WEIGHT/LENGTH BABY A Infant Birthweight (gm): 3375 Weight (lb): 7 Infant Weight (oz): 7 Infant Length (in): 20.75 Length (cm): 52.71 CORD INFORMATION BABY A No. Cord Vessels: 3 Nuchal Cord : N/A Cord Blood Taken: Yes-For Storage (Mom's Blood type +) Suction: None ASSESSMENT BABY A Infant Complications: Multiple Late Decels; Multiple Variable Decels Physical Findings at Delivery: Within Normal Limits Infant Respirations: Appears Normal Skin to Skin: Yes Electrical Instrumentation Technician/ALS Called : No Care By: Luci Salomon RN SIGNATURES Assignment: Kadie Fountain MD Signature: with User ID: Mohana : with User ID: [email or web address]
[2018-12-06] MEDS: IBUPROFEN 800 MG TABLET PO SCH (22:48)
[2018-12-06] MEDS: FAMOTIDINE 20 MG TABLET PO SCH (22:48)
[2018-12-07] MEDS: PENICILLIN G-K 5 MILLION UNIT VIAL IV SCH ×4 (04:19→17:35)
[2018-12-07] MEDS: IBUPROFEN 800 MG TABLET PO SCH ×4 (04:23→21:03)
[2018-12-07 06:39] LABS: HEMATOCRIT 23.9 % (36.0-47.0); MEAN CORPUSCULAR HEMOGLOBIN 29.3 pg (27.0-33.4); MEAN CORPUSCULAR HGB CONC 34.2 g/dL (32.0-36.0); MEAN CORPUSCULAR VOLUME 86 fl (80-97); PLATELET COUNT 346 10^3/uL (150-450); RED BLOOD COUNT 2.78 10^6/uL (3.72-5.28); RED CELL DISTRIBUTION WIDTH 14.5 % (11.5-14.0); WHITE BLOOD COUNT 19.2 10^3/uL (4.0-10.5)
[2018-12-07 06:44] LABS: HEMOGLOBIN 8.2 g/dL (12.0-15.5)
--- NOTE | 2018-12-07 09:51 | PDOC PROGRESS REPORT ---
Subjective-OB Progress Note for:: 12/07/18 - PP Day #1, GDM, doing well, no complaints, bottle feeding, B+, Rubella Immune. Physical Exam (OB) Vital Signs: Temp Pulse Resp BP Pulse Ox 97.8 F 74 18 117/66 100 12/07/18 08:21 12/07/18 08:21 12/07/18 08:21 12/07/18 08:21 12/07/18 08:21 Intake & Output 12/06/18 12/07/18 12/08/18 06:59 06:59 06:59 Weight 80.6 kg - General General Appearance: Appears well In distress: None - PIH/Pre-Eclampsia DTR's: 1 + Clonus: Negative Headache: Absent Epigastric Pain: No Visual Changes: No - Lochia Lochia Amount: Scant < 10 ml Lochia Color: Rubra/Red - Abdomen Description: Soft, Round Hernia Present: No Fundal Description: Firm, Midline Fundal Height: u/u - u/2 - Respiratory Respiratory Status: No respiratory distress - Abdominal Inspection: Normal Distension: No distension - Genitourinary Genitourinary Note: voiding - Extremities Upper extremity: Normal inspection Lower extremities: Normal inspection - Neurological Cognition: Normal Orientation: AAOx4 - Psychological Associated symptoms: Normal affect, Normal mood - Skin Skin Temperature: Warm Skin Moisture: Dry Objective-Diagnostic Laboratory: 12/07/18 06:28 12/07/18 06:28 WBC 19.2 H RBC 2.78 L Hgb 8.2 L D Hct 23.9 L MCV 86 MCH 29.3 MCHC 34.2 RDW 14.5 H Plt Count 346 Assessment and Plan(PN) - Assessment and Plan (1) (normal spontaneous vaginal delivery) Is this a current diagnosis for this admission?: Yes (2) Anemia, Is this a current diagnosis for this admission?: Yes (3) Gestational diabetes mellitus (GDM) affecting Is this a current diagnosis for this admission?: Yes - Time Spent with Patient Time with patient: Less than 15 minutes Medications reviewed and adjusted accordingly: Yes - Disposition Anticipated Discharge: Home Within: within 24 hours
[2018-12-07] MEDS: PRENATAL VITAMIN W DHA CAPSULE PO SCH (10:48)
[2018-12-07] MEDS: SENNOSIDES/DOCUSATE 8.6-50 MG 1 EACH TABLET PO SCH (10:48)
[2018-12-07] MEDS: DOCUSATE SODIUM 100 MG CAPSULE PO SCH ×2 (10:48→17:32)
[2018-12-07] MEDS: FAMOTIDINE 20 MG TABLET PO SCH ×2 (10:48→21:04)
[2018-12-07] MEDS: FERROUS SULFATE 325 MG TABLET PO SCH ×2 (10:48→17:32)
[2018-12-07] MEDS ORDERED: ACETAMINOPHEN 325 MG TABLET PO PRN (11:51)
[2018-12-08] MEDS: PENICILLIN G-K 5 MILLION UNIT VIAL IV SCH ×4 (03:35→12:28)
[2018-12-08] MEDS: IBUPROFEN 800 MG TABLET PO SCH (06:52)
[2018-12-08 08:22] VITALS: BP 99/56
[2018-12-08] MEDS: SENNOSIDES/DOCUSATE 8.6-50 MG 1 EACH TABLET PO SCH (09:20)
[2018-12-08] MEDS: DOCUSATE SODIUM 100 MG CAPSULE PO SCH (09:20)
[2018-12-08] MEDS: FAMOTIDINE 20 MG TABLET PO SCH (09:20)
[2018-12-08] MEDS: PRENATAL VITAMIN W DHA CAPSULE PO SCH (09:20)
[2018-12-08] MEDS: FERROUS SULFATE 325 MG TABLET PO SCH (09:20)
[2018-12-08 11:10] LABS: ABSOLUTE BASOPHILS # (AUTO) 0.1 10^3/uL (0.0-0.2); ABSOLUTE EOSINOPHILS # (AUTO) 0.2 10^3/uL (0.0-0.6); ABSOLUTE LYMPHOCYTES (AUTO) 2.8 10^3/uL (0.5-4.7); ABSOLUTE MONOCYTES (AUTO) 0.6 10^3/uL (0.1-1.4); ABSOLUTE NEUT (AUTO) 9.3 10^3/uL (1.7-8.2); BASOPHILS % (AUTO) 0.5 % (0-2); EOSINOPHILS % (AUTO) 1.4 % (0-6); HEMATOCRIT 23.2 % (36.0-47.0); LYMPHOCYTES % (AUTO) 21.9 % (13-45); MEAN CORPUSCULAR HEMOGLOBIN 29.6 pg (27.0-33.4); MEAN CORPUSCULAR HGB CONC 34.3 g/dL (32.0-36.0); MEAN CORPUSCULAR VOLUME 86 fl (80-97); MONOCYTES % (AUTO) 4.4 % (3-13); PLATELET COUNT 407 10^3/uL (150-450); RED BLOOD COUNT 2.69 10^6/uL (3.72-5.28); RED CELL DISTRIBUTION WIDTH 14.2 % (11.5-14.0); SEGMENTED NEUTROPHILS % (AUTO) 71.8 % (42-78); TOTAL CELLS COUNTED % (AUTO) 100 %
--- NOTE | 2018-12-08 11:40 | PDOC DISCHARGE SUMMARY ---
Final Diagnosis Discharge Date: 12/08/18 - Final Diagnosis (1) Anemia, Is this a current diagnosis for this admission?: Yes (2) Gestational diabetes mellitus (GDM) affecting Is this a current diagnosis for this admission?: Yes (3) (normal spontaneous vaginal delivery) Is this a current diagnosis for this admission?: Yes Discharge Data - Discharge Medication Prescriptions: Ibuprofen [Motrin 800 mg Tablet] 800 mg PO Q8HP PRN #60 tablet PRN Reason: Ferrous Sulfate [Feosol 325 mg Tablet] 325 mg PO BID #60 tablet Home Medications: Pnv No.103/Folic/Om3s/Fish Oil [ Gummies] 2 tab PO DAILY 05/29/18 Promethazine HCl 25 mg PO TID PRN 05/29/18 Promethazine HCl [Phenergan 25 mg Supp.rect] 1 tab VA Q6H PRN 12/01/18 Ferrous Sulfate [Feosol 325 mg Tablet] 325 mg PO BID #60 tablet 12/08/18 Ibuprofen [Motrin 800 mg Tablet] 800 mg PO Q8HP PRN #60 tablet 12/08/18 Reason(s) for Admission: Induction of Labor, Gestional Diabetes Procedures: NST Intrapartum Procedure(s): Spontaneous Vaginal Delivery - Diagnosis Test Laboratory: Temp Pulse Resp BP Pulse Ox 97.8 F 69 16 99/56 L 98 12/08/18 07:59 12/08/18 07:59 12/08/18 07:59 12/08/18 07:59 12/08/18 07:59 12/05/18 12/05/18 12/07/18 20:25 20:25 06:28 RBC 3.64 L 2.78 L Hgb 10.6 L 8.2 L D Hct 31.3 L 23.9 L Urine Opiates Screen NEGATIVE 12/08/18 10:55 RBC 2.69 L Hgb 8.0 L Hct 23.2 L Urine Opiates Screen - Discharge information/Instructions Discharge Activity: Activity As Tolerated, Pelvic Rest Discharge Diet: Regular Disposition: HOME, SELF-CARE Follow up with: [facility] in: 3, Weeks
== END 2018-12-08 13:20 | disposition home or self-care (01) | DRG 807 ==
LOC: LR 20:02 → 2S 12-06 20:35
PROVIDERS: ADMIT Obstetrics & Gynecology; ATTEND Obstetrics & Gynecology
PROC: 10E0XZZ Delivery of Products of Conception, External Approach (ICD-10-PCS; principal; 2018-12-06)
PROC: 3E0234Z Introduction of Serum, Toxoid and Vaccine into Muscle, Percutaneous Approach (ICD-10-PCS; 2018-12-08)
DX: O24.429 Gestational diabetes mellitus in childbirth, unspecified control (principal); Z37.0 Single live birth; O99.824 Streptococcus B carrier state complicating childbirth; O77.0 Labor and delivery complicated by meconium in amniotic fluid; O76 Abnormality in fetal heart rate and rhythm complicating labor and delivery; O99.284 Endocrine, nutritional and metabolic diseases complicating childbirth; E28.2 Polycystic ovarian syndrome; E07.89 Other specified disorders of thyroid; Z3A.39 39 weeks gestation of pregnancy; Z23 Encounter for immunization
CPT/HCPCS: 36415; 80307; 81005; 85025; 85027; 86592; 86850; 86900; 86901; 88307; 90715; 94760; J1200; J2540; J2590; J3010; J3490

== ENCOUNTER 2019-05-23 09:06 | Emergency (ER) | payer SELFPAY ==
[2019-05-23 09:37] VITALS: BP 121/77
--- NOTE | 2019-05-23 11:45 | ER Document Report ---
HPI - HPI Time Seen by Provider: 05/23/19 11:33 Pain Level: 0 Notes: Patient is a 28-year-old female no significant past medical history who presents complaining of difficulty closing the left eye, tingling/numbness left side of her face, tearing out of her left eye over the past week. Patient has also been told by coworkers that they have noticed when she blinks her left eye usually does not go all the way down her blink at all intermittently. She is otherwise eating and drinking without difficulty. She is urinating normally. No recent illness. No tick bite. Denies drug allergies. Denies any headache, fever, head injury, neck pain, changes in vision/speech/mentation/hearing, URI, sore throat, chest pain, palpitations, syncope, cough, shortness of breath, wheeze, dyspnea, abdominal pain, nausea/vomiting/diarrhea, urinary retention, dysuria, hematuria, loss of control of bowel or bladder, saddle anesthesia, or rash. - ROS Systems Reviewed and Negative: Yes All other systems reviewed and negative - REPRODUCTIVE Reproductive: DENIES: : Past Medical History - Social History Smoking Status: Unknown if Ever Smoked Family History: Reviewed & Not Pertinent Pulmonary Medical History: Reports: Hx Tuberculosis Endocrine Medical History: Reports: Hx Hypothyroidism Renal/ Medical History: Reports: Hx Ovarian Cysts - PCOS. Denies: Hx Peritoneal Dialysis Past Surgical History: Reports: Hx Gynecologic Surgery - LEEP procedures, Hx Thyroid Surgery, Hx Tonsillectomy - Immunizations Hx Diphtheria, Pertussis, Tetanus Vaccination: No Vertical Provider Document - CONSTITUTIONAL Agree With Documented VS: Yes Notes: PHYSICAL EXAMINATION: GENERAL: Well-appearing, well-nourished and in no acute distress. A&Ox4. Answers questions appropriately. HEAD: Atraumatic, normocephalic. Non-tender. EYES: Pupils equal round and reactive to light, extraocular movements intact, sclera anicteric, conjunctiva are normal. No nystagmus. vis bernstein intact. Eye will look upward when she tries to close her eyes and occ the left eyelid will shut. ENT: EAC clear b/l. TM's intact b/l without erythema, fluid, or perforation. Nares patent and without discharge. oropharynx clear without exudates. No tonsilar hypertrophy or erythema. Moist mucous membranes. No sinus tenderness. NECK: Normal range of motion, supple without lymphadenopathy. No rigidity/meningismus. No midline tenderness. LUNGS: Breath sounds clear to auscultation bilaterally and equal. No wheezes rales or rhonchi. HEART: Regular rate and rhythm without murmurs, rubs, gallops. ABDOMEN: Soft, nontender, nondistended abdomen. No guarding, no rebound. Normal bowel sounds present. No CVA tenderness bilaterally. Musculoskeletal: Ext's b/l: FROM to passive/active. Strength 5+/5. No deficits noted. No bony tenderness of extremities. Extremities: No cyanosis, clubbing, or edema b/l. Peripheral pulses 2+. Capillary refill less than 2 seconds. NEUROLOGICAL: GCS 15. Cranial nerves grossly intact. Normal speech, normal gait. Reflexes 2+ b/l. SHANIKA's negative. Pronator drift negative. Heel/gaviria, finger/nose wnl. Romberg neg. Left eye as noted above. There is a loss of wrinkles to left forehead. Dec sensation to left side of face. The left lip do es not rise as far the the right. PSYCH: Normal mood, normal affect. SKIN: Warm, Dry, normal turgor, no rashes or lesions noted. - INFECTION CONTROL TRAVEL OUTSIDE OF THE [place] 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 Vitals are acceptable without significant tachycardia, tachypnea, or hypoxia. PE is otherwise unremarkable aside from was noted. Patient has incomplete closure of the left eye, loss of wrinkles to the left side of the forehead, and slight droop of the left mouth with some decrease in sensation of the left side consistent with peripheral nerve palsy. Reviewed with patient that medicines are usually best when started early, but patient would like treatment. According to up-to-date, I will send her home with a prescription for prednisone and valacyclovir. Eye care reviewed. Low suspicion for any acute glaucoma, temporal arteritis, meningitis, intracranial hemorrhage, ischemic stroke, or fracture at this time. Patient is aware that this condition can change from initial presentation and that she needs to monitor symptoms closely for any acute changes. Recheck with your PCM/neurologist and technology coordinator in 3 to 5 days. Return to the ED with any other worsening/concerning symptoms. Patient is in agreement. - Vital Signs Vital signs: Temp Pulse Resp BP Pulse Ox 98.9 F 86 16 121/77 97 05/23/19 09:36 05/23/19 09:36 05/23/19 09:36 05/23/19 09:36 05/23/19 09:36 Discharge - Discharge Clinical Impression: Jacobs's palsy Condition: Stable Disposition: HOME, SELF-CARE Instructions: Jacobs's Palsy ([facility]) Additional Instructions: Tylenol/ibuprofen as needed Light stretches daily Healthy diet Take medications as directed F/u with your PCP in 3-5 days for a recheck Schedule an ophthalmology appointment Consider consult(s) with Neurology for ongoing/worsening symptoms Return to the ED with any worsening symptoms and/or development of fever, headache, changes in behavior/mentation/vision/speech, chest pain, palpitations, syncope, shortness of breath, trouble breathing, abdominal pain, n/v/d, blood in stool/urine, loss of control of bowel/bladder, urinary retention, saddle anesthesia, or other worsening symptoms that are concerning to you. Prescriptions: Prednisone [Deltasone 20 mg Tablet] 3 tab PO DAILY 7 Days tablet Valacyclovir HCl [Valacyclovir] 1,000 mg PO TID #21 tablet Referrals: MACEY MANZANO MD [NO LOCAL MD] - Follow up as needed
== END 2019-05-23 11:55 | disposition home or self-care (01) ==
LOC: ER 09:06
DX: G51.0 Bell's palsy (principal)
CPT/HCPCS: 99283

== ENCOUNTER 2019-08-30 05:26 | Emergency (ER) | payer SELFPAY ==
[2019-08-30] MEDS ORDERED: ONDANSETRON HCL INJ/PF 4 MG/2 ML SDV IV ONE (08:30)
[2019-08-30] MEDS ORDERED: NORMAL SALINE 1000 ML 1,000 ML IV ONE (08:30)
[2019-08-30 08:38] LABS: APPEARANCE,URINE SLIGHTLY-CLOUDY; BILIRUBIN,URINE NEGATIVE (NEGATIVE); COLOR,URINE YELLOW; GLUCOSE, URINE NEGATIVE (NEGATIVE); KETONES,URINE NEGATIVE (NEGATIVE); LEUKOCYTE ESTERASE,URINE SMALL (NEGATIVE); NITRITE,URINE NEGATIVE (NEGATIVE); PROTEIN,URINE 30 mg/dL (NEGATIVE); URINE SPECIFIC GRAVITY 1.031; UROBILINOGEN,URINE NEGATIVE mg/dL (<2.0)
[2019-08-30 09:07] LABS: ABSOLUTE EOSINOPHILS # (AUTO) 0.2 10^3/uL (0.0-0.6); ABSOLUTE LYMPHOCYTES (AUTO) 2.3 10^3/uL (0.5-4.7); ABSOLUTE MONOCYTES (AUTO) 0.4 10^3/uL (0.1-1.4); ABSOLUTE NEUT (AUTO) 4.6 10^3/uL (1.7-8.2); BASOPHILS % (AUTO) 0.5 % (0-2); EOSINOPHILS % (AUTO) 2.1 % (0-6); HEMATOCRIT 36.4 % (36.0-47.0); HEMOGLOBIN 12.4 g/dL (12.0-15.5); LYMPHOCYTES % (AUTO) 31.1 % (13-45); MEAN CORPUSCULAR HEMOGLOBIN 29.5 pg (27.0-33.4); MEAN CORPUSCULAR VOLUME 87 fl (80-97); MONOCYTES % (AUTO) 5.3 % (3-13); PLATELET COUNT 367 10^3/uL (150-450); RED CELL DISTRIBUTION WIDTH 13.7 % (11.5-14.0); TOTAL CELLS COUNTED % (AUTO) 100 %; WHITE BLOOD COUNT 7.6 10^3/uL (4.0-10.5)
--- NOTE | 2019-08-30 09:15 | ER Document Report ---
ED General - General Chief Complaint: Abdominal Pain Stated Complaint: ABDOMINAL PAIN Time Seen by Provider: 08/30/19 08:18 Notes: Patient is a 28-year-old female who presents emergency department with a chief complaint of right upper quadrant abdominal pain. She states that her symptoms started a few weeks ago. She has had on and off pain. She states that the pain does radiate to her back. Denies any fever. She states that she is some nausea and vomiting this morning. She has not taken any medications to help with the pain, but states that the pain is okay. Denies any past medical history. Does not take any medications. Patient states that she did have "gallbladder attacks" when she was . TRAVEL OUTSIDE OF THE [place] IN LAST 30 DAYS: No - Related Data Allergies/Adverse Reactions: No Known Allergies Allergy (Verified 08/30/19 07:39) Past Medical History - Social History Smoking Status: Current Every Day Smoker Chew tobacco use (# tins/day): No Frequency of alcohol use: None Drug Abuse: None Family History: Reviewed & Not Pertinent Patient has suicidal ideation: No Patient has homicidal ideation: No Pulmonary Medical History: Reports: Hx Tuberculosis Endocrine Medical History: Reports: Hx Hypothyroidism Renal/ Medical History: Reports: Hx Ovarian Cysts - PCOS. Denies: Hx Peritoneal Dialysis Past Surgical History: Reports: Hx Gynecologic Surgery - LEEP procedures, Hx Thyroid Surgery, Hx Tonsillectomy - Immunizations Hx Diphtheria, Pertussis, Tetanus Vaccination: No Review of Systems - Review of Systems Notes: REVIEW OF SYSTEMS: CONSTITUTIONAL : Denies recent illness. Denies recent unintentional weight loss. Denies fever, chills, or sweats. EENT: Denies eye, ear, throat, or mouth pain, discharge, or symptoms. Denies nasal or sinus congestion. CARDIOVASCULAR: Denies chest pain. RESPIRATORY: Denies shortness of breath, cough, congestion, difficulty breathing, or wheezing. GASTROINTESTINAL: See HPI. GENITOURINARY: Denies difficulty urinating, burning, blood in urine, urgency or frequency. MUSCULOSKELETAL: Denies neck and back pain. Denies joint pain or swelling. SKIN: Denies rash, itchiness, or lesions HEMATOLOGIC : Denies easy bruising or bleeding. LYMPHATIC: Denies swollen, painful, enlarged glands. NEUROLOGICAL: Denies no numbness or tingling denies weakness. Denies headache. Denies altered mental status. Denies alteration in speech. PSYCHIATRIC: Denies stress, anxiety, alteration in sleep patterns, or depression. DENTAL TECHNICIAN METAL: Denies any vaginal bleeding, vaginal discharge, or vaginal odor All other systems reviewed and negative. Physical Exam - Vital signs Vitals: Temp Pulse Resp BP Pulse Ox 97.6 F 84 17 112/63 98 08/30/19 05:45 08/30/19 05:45 08/30/19 05:45 08/30/19 05:45 08/30/19 05:45 - Notes Notes: PHYSICAL EXAMINATION: GENERAL: Appears well, healthy, well-nourished, no acute distress. HEAD: Normocephalic, atraumatic. EYES: PERRL, conjunctiva normal, all extraocular movements intact, sclera nonicteric ENT: Moist mucous membranes. NECK: Supple, no noticeable swelling, redness, rash. Normal range of motion. LUNGS: Equal breath sounds bilaterally and clear to auscultation. No wheezes rales or rhonchi. CARDIOVASCULAR: S1-S2, regular rate, regular rhythm. Radial pulses 2+, normal. ABDOMEN: Normoactive bowel sounds. Soft, tender right upper quadrant, no guarding, no rebound tenderness, and no masses palpated. EXTREMITIES: Normal strength and range of motion, no pitting or edema. No cyanosis. NEUROLOGICAL: Moves all extremities upon command. Strength 5/5 in all extremities. PSYCH: Normal mood, normal affect. SKIN: Warm, dry. No rash, lesions, ulcerations noted. Normal skin turgor. DENTAL TECHNICIAN METAL: White discharge noted on exam. No cervical motion tenderness noted. Course - Re-evaluation Re-evalutation: 08/30/10 11:40 Patient's right upper quadrant ultrasound did not visualize any cholelithiasis, cholecystitis, or gallbladder wall thickening. States that she still has pain in the area, I am concerned that she may have vaginal discharge causing her symptoms. Suhail Stevie Deniz syndrome is in the differential. Wet Mount will be ordered along with testing for gonorrhea and chlamydia. 08/30/19 11:45 Melanie, PCT was at bedside for pelvic exam. Patient did not have any cervical motion tenderness, but did have white/clear discharge. 08/30/19 12:30 Patient has 3+ epithelial, 4+ bacteria, and 2+ WBCs noted on her wet mount. No yeast or trichomonas noted. Patient will be started on Flagyl for bacterial vaginosis. I will also give her a dose of Rocephin, as her gonorrhea and Chlamydia results are not back. If her chlamydia is positive, I will call in a prescription for azithromycin. Patient will follow-up follow-up precautions were given. Verbal discharge instructions were given to the patient. They verbalized understanding. They are stable for discharge. 08/30/19 14:00 Gonorrhea and Chlamydia results are negative. - Vital Signs Vital signs: Temp Pulse Resp BP Pulse Ox 98.4 F 70 17 107/67 96 08/30/19 12:58 08/30/19 12:58 08/30/19 05:45 08/30/19 12:58 08/30/19 12:58 - Laboratory Result Diagrams: 08/30/19 08:45 08/30/19 08:45 Laboratory results interpreted by me: 08/30/19 08/30/19 07:49 08:45 Chloride 108 H Urine Protein 30 H Ur Leukocyte Esterase SMALL H Discharge - Discharge Clinical Impression: Bacterial vaginosis Condition: Stable Disposition: HOME, SELF-CARE Additional Instructions: You are being treated for bacterial vaginosis, an overgrowth of normal bacteria in the vagina. You are being sent home on an antibiotic called metronidazole. Take exactly as directed. Never drink alcohol while taking this antibiotic. Please return if you develop abdominal pain, fever greater than 101F, some vomiting, or any other symptoms that are concerning to you. Prescriptions: Metronidazole [Flagyl 500 mg Tablet] 500 mg PO Q6H #28 tablet Forms: Return to Work
[2019-08-30 09:29] LABS: ALKALINE PHOSPHATASE 85 U/L (38-126); ANION GAP 8 (5-19); ASPARTATE AMINO TRANSFERASE 14 U/L (14-36); BILIRUBIN,DIRECT 0.1 mg/dL (0.0-0.4); BILIRUBIN,TOTAL 0.2 mg/dL (0.2-1.3); BLOOD UREA NITROGEN 17 mg/dL (7-20); CALCIUM 9.6 mg/dL (8.4-10.2); CARBON DIOXIDE 22 mmol/L (22-30); CHLORIDE 108 mmol/L (98-107); GLUCOSE 98 mg/dL (75-110); POTASSIUM 4.6 mmol/L (3.6-5.0); TOTAL PROTEIN 6.6 g/dL (6.3-8.2)
--- NOTE | 2019-08-30 11:08 | RADIOLOGY REPORT (SQ) ---
EXAM DESCRIPTION: U/S ABDOMEN LIMITED W/O DOP COMPLETED DATE/TIME: 08/30/2019 10:44 am REASON FOR STUDY: RUQ pain COMPARISON: None. TECHNIQUE: Dynamic and static grayscale images acquired of the abdomen and recorded on PACS. Additio nal selected color Doppler and spectral images recorded. LIMITATIONS: None. FINDINGS: PANCREAS: No masses. Visualized pancreatic duct normal caliber. LIVER: The liver measures 17.0 cm, within the upper limits of normal for size. No masses. Echotextu re normal. LIVER VASCULATURE: Normal directional flow of the main portal vein and hepatic veins. GALLBLADDER: No stones. The gallbladder wall measures 1.8 mm, normal wall thickness. No pericholecys tic fluid. ULTRASOUND-DETECTED ROBERTO'S SIGN: Negative. INTRAHEPATIC DUCTS AND COMMON DUCT: CBD measures 3.3 mm in diameter, normal. The intrahepatic ducts normal caliber. No filling defects. INFERIOR VENA CAVA: Normal flow. AORTA: No aneurysm. RIGHT KIDNEY the right kidney measures 11.9 cm in length, normal size. Normal echogenicity. No solid or suspicious masses. Slight dilatation of the renal pelvis. No calcifications. PERITONEAL AND RIGHT PLEURAL SPACE: No ascites or effusions. OTHER: No other significant findings. IMPRESSION: 1. Slight dilatation of the right renal pelvis. 2. Examination of the right upper quadrant is otherwise normal. TECHNICAL DOCUMENTATION: JOB ID: [id number]- All Rights Reserved Reading location - IP/workstation name: [email or web address]
[2019-08-30 12:04] LABS: BACTERIA (WET MOUNT) 4+ BACTERIA SEEN; EPITHELIALS (WET MOUNT) 3+ EPITHELIALS SEEN; RBCS (WET MOUNT) 1+ RBCS SEEN; T.VAGINALIS (WET MOUNT) NO TRICHOMONAS SEEN; WBCS (WET MOUNT) 2+ WBCS SEEN; YEAST (WET MOUNT) NO YEAST SEEN
[2019-08-30] MEDS ORDERED: CEFTRIAXONE INJ 250 MG VIAL IM ONE (12:30)
[2019-08-30] MEDS ORDERED: LIDOCAINE 1% INJ-PF (10 MG/ML) 30 ML SDV INJ ONE (12:30)
[2019-08-30 13:01] VITALS: BP 107/67
[2019-08-30 14:25] LABS: CHLAM PCR NOT DETECTED (NOT DETECT)
== END 2019-08-30 13:18 | disposition home or self-care (01) ==
LOC: ER 05:26
DX: N76.0 Acute vaginitis (principal); B96.89 Other specified bacterial agents as the cause of diseases classified elsewhere; R10.11 Right upper quadrant pain; R10.811 Right upper quadrant abdominal tenderness; F17.200 Nicotine dependence, unspecified, uncomplicated; R11.2 Nausea with vomiting, unspecified
CPT/HCPCS: 36415; 87210; 83690; 85025; 81025; 80053; 81001; 87491; 87591; 76705; J3490; J2405; J7030; J0696

== ENCOUNTER 2019-09-16 01:09 | Emergency (ER) | payer SELFPAY ==
[2019-09-16 01:17] VITALS: BP 129/94
== END 2019-09-16 03:30 | disposition left against medical advice (07) ==
LOC: ER 01:09
DX: Z53.21 Procedure and treatment not carried out due to patient leaving prior to being seen by health care provider (principal)